=== PATIENT | male | born 1950 | race American Indian/Alaskan Native ===

== ENCOUNTER 2017-01-18 13:25 | Emergency (ER) | payer MEDICARE ==
[2017-01-18 15:24] LABS: Basophils % (Auto) 0.7 % (0.0-1.8); Eosinophils % (Auto) 0.5 % (0.0-4.3); Hematocrit 38.8 % (35.5-45.6); Hemoglobin 12.5 gm/dl (11.8-15.2); Mean Corpuscular HGB Conc 32 % (32-34); Mean Corpuscular Hemoglobin 27 pg (28-32); Mean Corpuscular Volume 84 fl (84-94); Platelet Count 168 K/mm3 (140-440); Red Blood Count 4.61 M/mm3 (3.65-5.03); Red Cell Distribution Width 13.8 % (13.2-15.2); White Blood Count 4.3 K/mm3 (4.5-11.0)
[2017-01-18 15:36] LABS: BUN/Creatinine Ratio 12.3; Calcium 9.1 mg/dL (8.4-10.2); Chloride 96.9 mmol/L (98-107)
[2017-01-18 16:20] LABS: Urine Drugs of Abuse Note Disclamer
[2017-01-18 16:49] LABS: Bilirubin,Urine NEG (Negative); Blood,Urine SM (Negative); Ketones,Urine NEG (Negative); Leukocyte Esterase,Urine NEG (Negative); Mucus,Urine FEW /HPF; Nitrite,Urine NEG (Negative); Protein,Urine <15 mg/dL mg/dL (Negative); Urobilinogen,Urine < 2.0 mg/dL (<2.0)
--- NOTE | 2017-01-18 22:39 | Emergency Department Report ---
HPI - General Chief Complaint: Psych Time Seen by Provider: 01/18/17 22:16 - HPI HPI: This is a 55-year-old Afro-[place] male who is brought into the emergency department for a mental health evaluation by the [facility] [employer]. The patient has a history of schizophrenia and appears to be having some psychosis and delusions and therefore is a poor historian. When he was asked how he got to the emergency department, the patient says that he "in by car." Knowing that the police brought him and I asked who drove the car. 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." ED Past Medical Hx - Past Medical History Previous Medical History?: Yes Hx Psychiatric Treatment: Yes (schizophrenia) - Surgical History Past Surgical History?: No - Social History Smoking Status: Current Every Day Smoker Substance Use Type: Alcohol, Prescribed - Medications Home Medications: Home Medications Medication Instructions Recorded Confirmed Last Taken Type Unobtainable 01/18/17 01/18/17 Unknown History ED Review of Systems ROS: Stated complaint: MH -SCHIZOPHRENIC Other details as noted in HPI Comment: Unobtainable due to pts medical conditions Physical Exam - Physical Exam Vital Signs: Vital Signs 01/18/17 14:42 Temperature 99.1 F Pulse Rate 94 H Respiratory 18 Rate Blood Pressure 151/92 O2 Sat by Pulse 97 Oximetry Physical Exam: GENERAL: The patient is well-developed well-nourished. HEENT: Normocephalic. Atraumatic. Extraocular motions are intact. Patient has moist mucous membranes. Pupils equal reactive to light bilaterally. NECK: Supple. Trachea is mid line. CHEST/LUNGS: Clear to auscultation. There is no respiratory distress noted. HEART/CARDIOVASCULAR: Regular. There is no tachycardia. There is no gallop rub or murmur. ABDOMEN: Abdomen is soft, nontender. Patient has normal bowel sounds. There is no abdominal distention. SKIN: Warm and dry. NEURO: Patient is awake. Follows some commands. Normal speech. No gait abnormalities. MUSCULOSKELETAL: There is no tenderness or deformity. There is no limitation range of motion. There is no evidence of acute injury. Muscle strength 5 out of 5 for upper and lower extremity bilaterally. PSYCH: Patient displays delusions and psychosis and is easily agitated. ED Course Vital Signs 01/18/17 14:42 Temperature 99.1 F Pulse Rate 94 H Respiratory 18 Rate Blood Pressure 151/92 O2 Sat by Pulse 97 Oximetry ED Medical Decision Making - Lab Data Result diagrams: 01/18/17 15:07 01/18/17 15:07 - Medical Decision Making 55-year-old male with history of schizophrenia presents via police department. The patient displays delusions and psychosis. He is easily agitated and is making nonspecific threats. Patient's labs are unremarkable. Vital signs stable throughout his ED course. Patient appears medically cleared for psychiatric placement. Crisis therapist has been contacted to assist. - Differential Diagnosis schizophrenia, bipolar disorder, schizoaffective, substance abuse Critical Care Time: No Critical care attestation.: If time is entered above; I have spent that time in minutes in the direct care of this critically ill patient, excluding procedure time. ED Disposition Clinical Impression: Delusions Psychosis Qualifiers: Psychosis type: unspecified psychosis type Qualified Code(s): F29 - Unspecified psychosis not due to a substance or known physiological condition Schizophrenia Qualifiers: Schizophrenia type: unspecified Qualified Code(s): F20.9 - Schizophrenia, unspecified Disposition: DC/TX PSY HOSP/PSY UNIT Is pt being admited?: No Condition: Stable Referrals: PRIMARY CARE [Primary Care Provider] - 3-5 Days Time of Disposition: 00:42
--- NOTE | 2017-01-19 20:52 | Consultation ---
History of Present Illness - Reason for Consult Consult date: 01/19/17 Reason for consult: psychosis and disorganized behaviors - Chief Complaint Chief complaint: This is a 55 year old male with a PPH of Schizophrenia who was brought in by the [facility] Department due to disorganized behaviors. The examination in the ER showed that he was verbally disorganized and agitated. On my examination, he was equally disorganized and unable to provide a coherent narrative about his presentation. The patient notes that their mood is: did not state. Affect is constricted. Patient relates sleep is: inconsistent Energy levels are: variable Appetite is: unknown Anxiety: present Appearance: Patient appears older than stated age Behavior: PMR, possibly having TD, +PMR Cooperation: poor Insight/Judgment: limited Level of cognition: not assessed comprehensively Level of consciousness: diminished Knowledge: unable to assess Speech: incoherent Thought processes: disorganized Thought content: could not assess Perceptions: maybe responding to internal stimuli Medications and Allergies Allergies Allergy/AdvReac Type Severity Reaction Status Date / Time No Known Allergies Allergy Unverified 01/18/17 14:41 Home Medications Medication Instructions Recorded Confirmed Last Taken Type Unobtainable 01/18/17 01/18/17 Unknown History Mental Status Exam - Vital signs Last Vital Signs Temp 98 F 01/19/17 07:51 Pulse 70 01/19/17 07:51 Resp 16 01/19/17 07:52 BP 131/86 01/19/17 07:51 Pulse Ox 97 01/19/17 07:52 Results Result Diagrams: 01/18/17 15:07 01/18/17 15:07 All other labs normal. Assessment and Plan Assessment and plan: Impression: History of Schizophrenia Plan: - continue to observe in the ER to better determine the illness presentation - hold antipsychotics at this time - place on 101 and transfer to inpatient psychiatric facility
--- NOTE | 2017-01-20 11:47 | Progress Note ---
Subjective - Reason for Consult Consult date: 01/20/17 Reason for consult: AMS, possible overdose Mental Status Exam - Vital signs Last Vital Signs Temp 97.8 F 01/20/17 07:54 Pulse 73 01/20/17 07:54 Resp 18 01/20/17 07:55 BP 151/91 01/20/17 07:54 Pulse Ox 97 01/20/17 07:54 Assessment and Plan This is a 55 year old male with a PPH of Schizophrenia who was brought in by the [facility] Department due to disorganized behaviors. The examination in the ER showed that he was verbally disorganized and agitated. On my examination on 01/19, he was equally disorganized and unable to provide a coherent narrative about his presentation. During my examination on 01/20: he remained disorganized, but he was able to verbalize that he took about 20 tablets of his thyroid medications. He was not really sure about the number. He was laughing inappropriately. The patient notes that their mood is: did not state. Affect is constricted. Patient relates sleep is: inconsistent Energy levels are: variable Appetite is: unknown Anxiety: present Appearance: Patient appears older than stated age Behavior: PMR, possibly having TD, +PMR, EMO are more fluid today compared to yesterday Cooperation: poor Insight/Judgment: limited Level of cognition: not assessed comprehensively Level of consciousness: diminished Knowledge: unable to assess Speech: incoherent Thought processes: disorganized Thought content: could not assess Perceptions: maybe responding to internal stimuli Impression: Possible overdose on his thyroid medication. History of Schizophrenia Plan: - thyroid panel ordered, please follow up - continue to observe in the ER to better determine the illness presentation - hold antipsychotics at this time - place on 1012 and transfer to inpatient psychiatric facility
--- NOTE | 2017-01-20 17:23 | Emergency Department Report ---
Blank Doc - Documentation Documentation: Patient seen and reexamined. Resting comfortably on the gurney. Currently calm. The only new labs ordered today were TSH and free T4 which resulted as normal. His vital signs are normal. Patient is being reevaluated by the psychiatrist. He is currently awaiting psychiatric placement for delusions and psychosis and is a 1013.
[2017-01-21 01:28] VITALS: BP 163/76
== END 2017-01-20 21:19 ==
LOC: ED 13:25 → EEVIPCON 13:25 → EDBD 13:25 → ED 01-20 21:19
DX: F29 Unspecified psychosis not due to a substance or known physiological condition (principal); F20.9 Schizophrenia, unspecified; F22 Delusional disorders; F17.200 Nicotine dependence, unspecified, uncomplicated
CPT/HCPCS: 36415; 80048; 80307; 81001; 84439; 84443; 85025; 99285; G0480; 80320